=== PATIENT | female | born 1945 | race Asian ===

== ENCOUNTER 2018-02-25 10:25 | Outpatient (CLI) | payer OTHER ==
[2018-02-25 10:54] LABS: PLATELET COUNT 196 K/uL (152-353)
[2018-02-25 11:13] LABS: POTASSIUM 4.1 mmol/L (3.6-5.2)
== END 2018-02-25 23:55 | disposition home or self-care (01) ==
LOC: LABW 10:25
PROVIDERS: Family Medicine
DX: E11.9 Type 2 diabetes mellitus without complications (principal); I10 Essential (primary) hypertension; I25.10 Atherosclerotic heart disease of native coronary artery without angina pectoris; M54.5 Low back pain; E55.9 Vitamin D deficiency, unspecified
CPT/HCPCS: 36415; 80053; 80061; 81000; 82306; 83036; 84439; 84443; 85027

== ENCOUNTER 2018-08-07 11:47 | Emergency (ER) | payer OTHER ==
[~2018-08-07] VITALS: Ht 162.6 cm; Wt 90.7 kg
[2018-08-07] MEDS ORDERED: LOSA50TA PO (12:21)
[2018-08-07] MEDS ORDERED: METO25TA4 PO (12:22)
[2018-08-07] MEDS ORDERED: METF500T PO (12:22)
[2018-08-07] MEDS ORDERED: CLON0.1T16 PO (12:22)
[2018-08-07] MEDS ORDERED: MOBIC7.5 M1 PO (12:24)
[2018-08-07 14:04] LABS: PLATELET COUNT 201 K/uL (152-353)
[2018-08-07 14:12] LABS: POTASSIUM 5.2 mmol/L (3.6-5.2)
[2018-08-07 15:56] VITALS: BP 139/71; TEMP 97.7
== END 2018-08-07 15:56 | disposition home or self-care (01) ==
LOC: ED 11:47
PROVIDERS: Emergency Medicine
DX: R42 Dizziness and giddiness (principal)
CPT/HCPCS: 80053; 81000; 85027; 99283

== ENCOUNTER 2018-08-12 09:30 | Outpatient (CLI) | payer OTHER ==
[~2018-08-12 09:30] MED LIST: CLON0.1T16 PO; LOSA50TA PO; METF500T PO; METO25TA4 PO; MOBIC7.5 M1 PO
[2018-08-12 11:29] LABS: POTASSIUM 4.2 mmol/L (3.6-5.2)
== END 2018-08-12 23:59 | disposition home or self-care (01) ==
LOC: LABW 09:30
PROVIDERS: Family Medicine
DX: R53.83 Other fatigue (principal); E11.37X1 Type 2 diabetes mellitus with diabetic macular edema, resolved following treatment, right eye; I10 Essential (primary) hypertension; Z95.0 Presence of cardiac pacemaker
CPT/HCPCS: 36415; 80053; 80061; 83036; 83735; 84439; 84443; 93005

== ENCOUNTER 2018-08-15 16:14 | Emergency (ER) | payer OTHER ==
[~2018-08-15] VITALS: Ht 162.6 cm; Wt 90.7 kg
[2018-08-15 17:10] LABS: PLATELET COUNT 238 K/uL (152-353)
[2018-08-15 17:18] LABS: POTASSIUM 5.3 mmol/L (3.6-5.2)
[2018-08-15 18:16] VITALS: BP 107/60; TEMP 97
== END 2018-08-15 18:17 | disposition home or self-care (01) ==
LOC: ED 16:14
PROVIDERS: Allergy & Immunology
DX: R06.09 Other forms of dyspnea (principal)
CPT/HCPCS: 80053; 85027; 93005; 94664; 99283

== ENCOUNTER 2018-09-03 09:23 | Outpatient (CLI) | payer OTHER ==
[2018-09-03 11:10] LABS: POTASSIUM 3.7 mmol/L (3.6-5.2)
== END 2018-09-03 19:38 | disposition home or self-care (01) ==
LOC: LABW 09:23
PROVIDERS: Internal Medicine Cardiovascular Disease
DX: I50.9 Heart failure, unspecified (principal); Z79.899 Other long term (current) drug therapy
CPT/HCPCS: 36415; 80048; 83880

== ENCOUNTER 2019-03-10 14:48 | Outpatient (CLI) | payer OTHER | END 2019-03-10 20:07 | disposition home or self-care (01) | LOC: US 14:48 | DX: E11.9 Type 2 diabetes mellitus without complications (principal); R60.0 Localized edema; E55.9 Vitamin D deficiency, unspecified; M79.605 Pain in left leg; I11.9 Hypertensive heart disease without heart failure ==

== ENCOUNTER 2019-07-14 13:25 | Emergency (ER) | payer OTHER ==
[~2019-07-14] VITALS: Ht 162.6 cm; Wt 95.3 kg
[2019-07-14 13:35] VITALS: TEMP 98.1
[2019-07-14 15:04] LABS: PLATELET COUNT 188 K/uL (152-353)
[2019-07-14 15:11] LABS: POTASSIUM 3.9 mmol/L (3.6-5.2)
[2019-07-14 17:05] VITALS: BP 143/69
== END 2019-07-14 17:05 | disposition home or self-care (01) ==
LOC: ED 13:25
PROVIDERS: Emergency Medicine
DX: R10.84 Generalized abdominal pain (principal); K80.80 Other cholelithiasis without obstruction; N20.0 Calculus of kidney; K57.90 Diverticulosis of intestine, part unspecified, without perforation or abscess without bleeding
CPT/HCPCS: 36415; 80053; 82150; 83690; 85027; 96374; 99284; J1885; Q9963

== ENCOUNTER 2020-04-22 14:43 | Emergency (ER) | payer OTHER ==
[~2020-04-22] VITALS: Ht 162.6 cm; Wt 90.7 kg
[2020-04-22 14:55] VITALS: TEMP 98.5
[2020-04-22 16:19] VITALS: BP 152/78
== END 2020-04-22 16:21 | disposition home or self-care (01) ==
LOC: ED 14:43
DX: S46.811A Strain of other muscles, fascia and tendons at shoulder and upper arm level, right arm, initial encounter (principal); W18.39XA Other fall on same level, initial encounter; Y92.89 Other specified places as the place of occurrence of the external cause
CPT/HCPCS: 96372; 99283; J1885

== ENCOUNTER 2020-11-28 13:01 | Outpatient (CLI) | payer OTHER ==
[2020-11-28 13:34] LABS: POTASSIUM 3.5 mmol/L (3.6-5.2)
[2020-11-28 13:35] LABS: PLATELET COUNT 213 K/uL (152-353)
[2020-11-28 13:49] LABS: PARTIAL THROMBOPLASTIN TIME 24.8 SECONDS (24.5-33.6)
== END 2020-11-28 22:21 | disposition home or self-care (01) ==
LOC: LABW 13:01
PROVIDERS: ATTEND Internal Medicine Cardiovascular Disease
DX: Z01.810 Encounter for preprocedural cardiovascular examination (principal); I25.10 Atherosclerotic heart disease of native coronary artery without angina pectoris; R06.02 Shortness of breath; I49.8 Other specified cardiac arrhythmias; I10 Essential (primary) hypertension; E11.9 Type 2 diabetes mellitus without complications; E78.2 Mixed hyperlipidemia; E66.01 Morbid (severe) obesity due to excess calories
CPT/HCPCS: 36415; 80048; 83880; 85027; 85610; 85730

== ENCOUNTER 2021-07-13 11:29 | Outpatient (CLI) | payer OTHER | END 2021-07-13 20:41 | disposition home or self-care (01) | LOC: LAB 11:29 | PROVIDERS: ATTEND Family Medicine | DX: R05.9 Cough, unspecified (principal); Z20.822 Contact with and (suspected) exposure to COVID-19 | CPT/HCPCS: 87635; G2023; U0003 ==

== ENCOUNTER 2021-11-20 12:48 | Outpatient (CLI) | payer OTHER | END 2021-11-20 19:29 | disposition home or self-care (01) | LOC: RAD 12:48 | PROVIDERS: ATTEND Family Medicine | DX: M25.561 Pain in right knee (principal); M25.562 Pain in left knee ==

== ENCOUNTER 2022-02-08 11:03 | Outpatient (CLI) | payer OTHER | END 2022-02-08 18:58 | disposition home or self-care (01) | LOC: US 11:03 | PROVIDERS: ATTEND Family Medicine | DX: M79.605 Pain in left leg (principal); R60.0 Localized edema; M25.569 Pain in unspecified knee ==

== ENCOUNTER 2022-06-25 12:24 | Outpatient (CLI) | payer OTHER | END 2022-06-25 22:20 | disposition home or self-care (01) | LOC: RAD 12:24 | PROVIDERS: ATTEND Family Medicine | DX: M25.562 Pain in left knee (principal); R60.0 Localized edema ==

== ENCOUNTER 2022-09-16 08:41 | Emergency (ER) | payer OTHER ==
[~2022-09-16] VITALS: Ht 162.6 cm; Wt 93.0 kg
[2022-09-16 08:45] VITALS: BP 168/89; TEMP 97.3
[2022-09-16 10:08] LABS: PLATELET COUNT 224 K/uL (152-353)
== END 2022-09-16 10:52 | disposition home or self-care (01) ==
LOC: ED 08:41
PROVIDERS: Emergency Medicine Emergency Medical Services
DX: R60.0 Localized edema (principal)
CPT/HCPCS: 80048; 83880; 84484; 85027; 93005; 99283

== ENCOUNTER 2022-11-11 09:17 | Outpatient (CLI) | payer OTHER ==
[2022-11-11 09:37] LABS: PLATELET COUNT 225 K/uL (152-353)
[2022-11-11 10:01] LABS: POTASSIUM 4.9 mmol/L (3.6-5.2)
== END 2022-11-11 20:10 | disposition home or self-care (01) ==
LOC: LABW 09:17
PROVIDERS: ATTEND Family Medicine
DX: I11.0 Hypertensive heart disease with heart failure (principal); I50.9 Heart failure, unspecified; R60.0 Localized edema; E11.65 Type 2 diabetes mellitus with hyperglycemia; M25.569 Pain in unspecified knee; E55.9 Vitamin D deficiency, unspecified
CPT/HCPCS: 36415; 80053; 81002; 82043; 82306; 83036; 84439; 84443; 84550; 85027

== ENCOUNTER 2022-12-11 02:31 | Observation (INO) | payer OTHER ==
[2022-12-11] VITALS (10 sets, daily range): BP systolic 109–144; BP diastolic 53–92; TEMP 96.2–98.9; Ht 160 cm; Wt 97.6 kg
[~2022-12-11] VITALS: Ht 160 cm; Wt 97.6 kg
[2022-12-11 03:26] LABS: PLATELET COUNT 228 K/uL (152-353)
[2022-12-11 03:44] LABS: POTASSIUM 6.8 mmol/L (3.6-5.2)
[2022-12-11 07:18] LABS: POTASSIUM 6.5 mmol/L (3.6-5.2)
[2022-12-11] MEDS ORDERED: ASA LOW DOSE81 MG PO (14:20)
[2022-12-11] MEDS ORDERED: FURO20TA67 PO (14:21)
[2022-12-11] MEDS ORDERED: HYDROXYZINE HYD25 MG PO (14:21)
[2022-12-11] MEDS ORDERED: VALSARTAN80 MG PO (14:22)
[2022-12-11] MEDS ORDERED: POTASSIUM CHLO20 ME1 PO (14:25)
[2022-12-11] MEDS ORDERED: 904272561 PO (14:26)
[2022-12-11] MEDS ORDERED: METO50TA27 PO (14:26)
[2022-12-11] MEDS ORDERED: GABA100C2 PO (14:27)
[2022-12-11] MEDS ORDERED: OXYC5TAB53 PO (14:27)
[2022-12-11] MEDS ORDERED: ATOR10TA3 PO (14:28)
[2022-12-11] MEDS ORDERED: TOUJEO SOL300 UNIT/M SC (14:28)
[2022-12-11 20:51] LABS: POTASSIUM 5.7 mmol/L (3.6-5.2)
[2022-12-12 02:22] LABS: POTASSIUM 5.3 mmol/L (3.6-5.2)
[2022-12-12 04:00] VITALS: BP 134/62; TEMP 98.5
[2022-12-12 08:00] VITALS: BP 129/69; TEMP 98.2
[2022-12-12 12:00] VITALS: BP 128/74; TEMP 98.3
[2022-12-12 16:00] VITALS: BP 122/67; BP 159/76; TEMP 98.7
[2022-12-12 20:00] VITALS: BP 131/65; TEMP 97.9
[2022-12-12 23:40] VITALS: BP 108/63; BP 131/76; TEMP 98.4
[2022-12-13 03:47] VITALS: BP 138/64; TEMP 97.9
[2022-12-13 08:00] VITALS: BP 150/80; TEMP 97
[2022-12-13 08:30] LABS: POTASSIUM 4.8 mmol/L (3.6-5.2)
== END 2022-12-13 11:25 | disposition home or self-care (01) ==
LOC: ED 02:31 → MED/SURG 08:43
PROVIDERS: ADMIT Family Medicine; ATTEND Internal Medicine Endocrinology, Diabetes & Metabolism
DX: E87.5 Hyperkalemia (principal); Z95.0 Presence of cardiac pacemaker; I11.0 Hypertensive heart disease with heart failure; E11.9 Type 2 diabetes mellitus without complications; R11.2 Nausea with vomiting, unspecified; R53.1 Weakness; R42 Dizziness and giddiness; I50.9 Heart failure, unspecified; Z79.4 Long term (current) use of insulin
CPT/HCPCS: 36415; 80048; 80053; 81002; 83690; 83735; 83880; 84484; 85027; 93005; 96360; 96361; 96365; 96375; 96376; 99221; 99284; G0378; J0610; J1815; J1940; J2405; J2765; J7060

== ENCOUNTER 2023-01-06 09:15 | Outpatient (CLI) | payer OTHER ==
[~2023-01-06 09:15] MED LIST changes: +904272561 PO; +ASA LOW DOSE81 MG PO; +ATOR10TA3 PO; +FURO20TA67 PO; +GABA100C2 PO; +HYDROXYZINE HYD25 MG PO; +METO50TA27 PO; +OXYC5TAB53 PO; +POTASSIUM CHLO20 ME1 PO; +TOUJEO SOL300 UNIT/M SC; +VALSARTAN80 MG PO
[2023-01-06 10:18] LABS: POTASSIUM 4.6 mmol/L (3.6-5.2)
== END 2023-01-06 20:46 | disposition home or self-care (01) ==
LOC: LABW 09:15
PROVIDERS: ATTEND Family Medicine
DX: I13.0 Hypertensive heart and chronic kidney disease with heart failure and stage 1 through stage 4 chronic kidney disease, or unspecified chronic kidney disease (principal); I50.9 Heart failure, unspecified; E11.22 Type 2 diabetes mellitus with diabetic chronic kidney disease; N18.30 Chronic kidney disease, stage 3 unspecified; I48.91 Unspecified atrial fibrillation; E87.5 Hyperkalemia; E86.0 Dehydration; Z86.73 Personal history of transient ischemic attack (TIA), and cerebral infarction without residual deficits; Z79.01 Long term (current) use of anticoagulants
CPT/HCPCS: 36415; 80053; 80061; 84439; 84443

== ENCOUNTER 2023-03-05 18:34 | Emergency (ER) | payer OTHER ==
[~2023-03-05] VITALS: Ht 160 cm; Wt 90.3 kg
[2023-03-05 20:28] LABS: PLATELET COUNT 227 K/uL (152-353)
[2023-03-05 20:33] LABS: POTASSIUM 3.4 mmol/L (3.6-5.2)
[2023-03-05 21:57] VITALS: BP 153/73; TEMP 97.7
== END 2023-03-05 21:57 | disposition home or self-care (01) ==
LOC: ED 18:34
PROVIDERS: Family Medicine
DX: A08.4 Viral intestinal infection, unspecified (principal); R19.7 Diarrhea, unspecified
CPT/HCPCS: 36415; 80053; 81002; 83690; 85027; 87040; 93005; 96361; 96374; 99284; J2405